=== PATIENT | male | born 1975 | race American Indian/Alaskan Native ===

== ENCOUNTER 2017-11-07 07:11 | Emergency (ER) | payer MEDICAID ==
[2017-11-07 08:30] LABS: Hematocrit 31.3 % (35.5-45.6); Hemoglobin 9.8 gm/dl (11.8-15.2); Mean Corpuscular HGB Conc 31 % (32-34); Mean Corpuscular Volume 74 fl (84-94); Platelet Count 437 K/mm3 (140-440); Red Blood Count 4.21 M/mm3 (3.65-5.03)
[2017-11-07 08:31] LABS: INR 1.04 (0.87-1.13)
[2017-11-07 08:32] LABS: Mean Corpuscular Hemoglobin 23 pg (28-32); Red Cell Distribution Width 21.3 % (13.2-15.2)
[2017-11-07 08:33] LABS: Partial Thromboplastin Time 43.2 Sec. (24.2-36.6)
--- NOTE | 2017-11-07 08:46 | XRay Report ---
FINAL REPORT EXAM: XR KNEE 3V RT HISTORY: trauma, edema, hx hemophilia COMPARISONS: None. FINDINGS: Three views right knee Epiphyseal region expansion of the knee is compatible with history of hemophilia. Extensive erosive arthropathy. No acute fraction or effusion identified. IMPRESSION: No acute fracture or gross malalignment of the right knee. Findings are compatible with reported history of hemophilia. Consider additional imaging for worsening/persistent symptoms.
[2017-11-07] MEDS ORDERED: NORCO 5/325 PO ONE (09:43)
--- NOTE | 2017-11-07 09:48 | Emergency Department Report ---
HPI - General Chief Complaint: Extremity Injury, Lower Time Seen by Provider: 11/07/17 09:27 - HPI HPI: 42-year-old male presents to the emergency department with complaint of some pain and swelling to the right knee after he had a fall this morning while walking to [facility]. The patient is a history of hemophilia a and hypertension. He says that he came in by EMS. He did not take anything receive anything for her symptoms prior to presentation. He denies having a primary care physician. No Recent travel or sick contacts at home. ED Past Medical Hx - Past Medical History Previous Medical History?: Yes Hx Hypertension: Yes Additional medical history: Hemophilia A - Surgical History Past Surgical History?: Yes Additional Surgical History: left knee replacement 2011. 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, s/t bleeding - Social History Smoking Status: Current Every Day Smoker Substance Use Type: None - Medications Home Medications: Home Medications Medication Instructions Recorded Confirmed Last Taken Type HYDROcodone/APAP 5-325 [Buckeye 1 each PO Q6H PRN #10 tablet 11/07/17 Unknown Rx 5-325 mg TAB] ED Review of Systems ROS: Stated complaint: RIGHT KNEE PAIN Other details as noted in HPI Comment: All other systems reviewed and negative Constitutional: denies: chills, fever Eyes: denies: eye pain, eye discharge, vision change ENT: denies: ear pain, throat pain Respiratory: denies: cough, shortness of breath, wheezing Cardiovascular: denies: chest pain, palpitations Gastrointestinal: denies: abdominal pain, nausea, diarrhea Genitourinary: denies: urgency, dysuria Musculoskeletal: joint swelling, arthralgia Skin: denies: rash, lesions Neurological: denies: headache, weakness, paresthesias Physical Exam - Physical Exam Vital Signs: Vital Signs 11/07/17 07:29 Temperature 98.6 F Pulse Rate 108 H Respiratory 16 Rate Blood Pressure 149/107 O2 Sat by Pulse 99 Oximetry Physical Exam: GENERAL: The patient is well-developed well-nourished. HENT: Normocephalic. Atraumatic. Patient has moist mucous membranes. EYES: Extraocular motions are intact. NECK: Supple. Trachea is midline. CHEST/LUNGS: Clear to auscultation. There is no respiratory distress noted. HEART/CARDIOVASCULAR: Regular. There is no tachycardia. There is no murmur. ABDOMEN: There is no abdominal distention. SKIN: Skin is warm and dry. There is some mild swelling to the right knee but no skin color change. NEURO: The patient is awake, alert, and oriented. The patient is cooperative. The patient has no focal neurologic deficits. The patient has normal speech. MUSCULOSKELETAL: There is some tenderness to palpation to the anterior right knee. No laxity with valgus or varus stress. Negative anterior and posterior drawer test of the right knee. ED Course Vital Signs 11/07/17 07:29 Temperature 98.6 F Pulse Rate 108 H Respiratory 16 Rate Blood Pressure 149/107 O2 Sat by Pulse 99 Oximetry ED Medical Decision Making - Lab Data Result diagrams: 11/07/17 08:00 - Radiology Data Radiology results: report reviewed EXAM: XR KNEE 3V RT HISTORY: trauma, edema, hx hemophilia COMPARISONS: None. FINDINGS: Three views right knee Epiphyseal region expansion of the knee is compatible with history of hemophilia. Extensive erosive arthropathy. No acute fraction or effusion identified. IMPRESSION: No acute fracture or gross malalignment of the right knee. Findings are compatible with reported history of hemophilia. Consider additional imaging for worsening/persistent symptoms. Transcribed By: CHRIS Dictated By: BROOKE FLAHERTY MD Electronically Authenticated By: BROOKE FLAHERTY MD Signed Date/Time: 11/07/17 0844 - Medical Decision Making Patient has a history of hemophilia and fell onto his right knee causing right knee pain. X-ray was done that was read by radiology as consistent with a history of hemophilia but no acute fracture, dislocation or effusion. The knee does appear slightly swollen but it is mostly from his bone which also appears osteoarthritic on x-ray. He has followed with Dr. Fong in the past and has been given a referral to return to Dr. Fong as well as a different orthopedic group. Patient will be placed in a knee immobilizer and on crutches. I did check the [facility] prescription monitoring and the patient last filled the medication on 10/26 at [facility] for what appears to be the same issue. The patient does appear to have moderate discomfort so I have decided to give him a very small amount of pain medication, a less than 3 day supply. He understands the importance of following up with the orthopedist and primary care. - Differential Diagnosis osteoarthritis, fracture, dislocation, joint effusion Critical Care Time: No Critical care attestation.: If time is entered above; I have spent that time in minutes in the direct care of this critically ill patient, excluding procedure time. ED Disposition Clinical Impression: History of hemophilia A Right knee pain Qualifiers: Chronicity: unspecified Qualified Code(s): M25.561 - Pain in right knee Disposition: DC-01 TO HOME OR SELFCARE Is pt being admited?: No Condition: Stable Instructions: Knee Pain (ED), Arthralgia (ED) Additional Instructions: Please follow up with a primary care physician regarding your elevated blood pressure and your history of hemophilia. I have given you a referral for 2 different orthopedic groups regarding her right knee pain. Use the knee immobilizer and crutches as necessary. You can use some ice (but not directly against the skin), elevation, compression. Return to the emergency Department with any worsening of your symptoms or any acute distress. You have been prescribed a medication that is sedating and therefore should not be taken prior to driving, working, and responsible for children and in no way should be mixed with alcohol of any quantity. Prescriptions: HYDROcodone/APAP 5-325 [Buckeye 5-325 mg TAB] 1 each PO Q6H PRN #10 tablet PRN Reason: Pain , Severe (7-10) Referrals: PRIMARY CARE, [Primary Care Provider] - 2-3 Days HERMELINDO OFNG MD [Staff Physician] - 2-3 Days [facility] [Provider Group] - 2-3 Days HAYLIE JJ MD [Staff Physician] - 2-3 Days [facility] [Outside] - 2-3 Days Time of Disposition: 09:48
[2017-11-07 10:17] VITALS: BP 138/98
== END 2017-11-07 10:18 | disposition home or self-care (01) ==
LOC: ED 07:11
DX: M25.561 Pain in right knee (principal); D66 Hereditary factor VIII deficiency; I10 Essential (primary) hypertension; F17.200 Nicotine dependence, unspecified, uncomplicated; Z90.81 Acquired absence of spleen; Z96.652 Presence of left artificial knee joint; Z88.6 Allergy status to analgesic agent
CPT/HCPCS: 36415; 85027; 85610; 85730